=== PATIENT | male | born 1950 | race Caucasian/White ===

== ENCOUNTER 2018-02-23 12:05 | Inpatient (IN) | payer MEDICARE, OTHER ==
[~2018-02-23] VITALS: Ht 180.3 cm; Wt 94.5 kg
[2018-02-23 12:07] VITALS: BP 120/54; PULSE 90; RESP 20; TEMP 98.4; O2SAT 94
[2018-02-23] MEDS ORDERED: ASPI-516 CHEW (12:17)
[2018-02-23] MEDS ORDERED: FUROSEMIDE 20 MG/2 ML VIAL IV PUSH ONE (13:30)
--- NOTE | 2018-02-23 13:37 | PD ---
HPI Chief Complaint: Edema Time Seen by Provider: 13:18 Travel History International Travel<30 days: No Contact w/Intl Traveler<30days: No Traveled to known affect area: No History of Present Illness HPI This 68-year-old male is complaining of swelling in both of his legs. He has not seen a physician in about 20 years. He has no history of hypertension or diabetes. He does smoke cigarettes and believes he has emphysema. He says he has been short of breath at times. He does not take any medications. He does drink alcohol. He has had trouble breathing. He has pain in both of his feet. The pain is aggravated by trying to walk and he has not been able to walk recently. He has been using a scooter. He has been taking aspirin. He actually says that he takes 3 tablets of aspirin every 3-4 hours for circulation and because of pain in his right hip. He has not noted any blood in his stool. He does get a lot of bruising PFSH Past Medical History Diminished Hearing: No Tetanus Vaccination: Unknown Influenza Vaccination: No Social History Alcohol Use: Yes Tobacco Use: Yes Substance Use: No Allergies-Medications (Allergen,Severity, Reaction): Coded Allergies: No Known Allergies (Verified Allergy, Unknown, 02/23/18) Reported Meds & Prescriptions Reported Meds & Active Scripts Active Reported Aspirin 81 Mg Chew 81 Mg CHEW DAILY Review of Systems General / Constitutional: No: Fever, Chills Eyes: No: Diploplia, Blurred Vision HENT: No: Lightheadedness, Rhinitis Cardiovascular: Positive: Edema, No: Chest Pain or Discomfort Respiratory: Positive: Shortness of Breath Gastrointestinal: No: Nausea, Vomiting Genitourinary: No: Urgency, Frequency Musculoskeletal: Positive: Weakness, No: Myalgias Skin: No Rash, No Itching Psychiatric: No: Anxiety, Depression Endocrine: No: Cold Intolerance Hematologic/Lymphatic: Positive: Easy Bruising Physical Exam Narrative GENERAL: Well-developed male SKIN: Focused skin assessment warm/dry. There is purpura on both arms HEAD: Atraumatic. Normocephalic. EYES: Pupils equal and round. No scleral icterus. No injection or drainage. ENT: No nasal bleeding or discharge. Mucous membranes pink and moist. NECK: Trachea midline. No JVD. CARDIOVASCULAR: Regular rate and rhythm. No murmur appreciated. RESPIRATORY: No accessory muscle use. There are bilateral wheezes and rhonchi. breath sounds equal bilaterally. GASTROINTESTINAL: Abdomen soft, non-tender, nondistended. Hepatic and splenic margins not palpable. On rectal exam stool is brown and guaiac positive MUSCULOSKELETAL: No obvious deformities. No clubbing. No cyanosis. There is bilateral pedal edema up to the mid thigh bilaterally. There is some mild erythema of both feet. The posterior thigh is tender on the right NEUROLOGICAL: Awake and alert. No obvious cranial nerve deficits. Motor grossly within normal limits. Normal speech. PSYCHIATRIC: Appropriate mood and affect; insight and judgment normal. Data Data Last Documented VS Vital Signs Date Time Temp Pulse Resp B/P (MAP) Pulse Ox O2 Delivery O2 Flow Rate FiO2 02/23/18 12:17 97 Room Air 02/23/18 12:07 98.4 90 20 120/54 (76) Orders Orders Electrocardiogram (02/23/18 13:23) Complete Blood Count With Diff (02/23/18 13:23) Comprehensive Metabolic Panel (02/23/18 13:23) Troponin I (02/23/18 13:23) B-Type Natriuretic Peptide (02/23/18 13:23) Urinalysis - C+S If Indicated (02/23/18 13:23) Magnesium (Mg) (02/23/18 13:23) Chest, Single Ap (02/23/18 13:23) Us Leg Venous Doppler Bilat (02/23/18 13:23) Furosemide Inj (Lasix Inj) (02/23/18 13:30) Prothrombin Time / Inr (Pt) (02/23/18 13:39) Act Partial Throm Time (Ptt) (02/23/18 13:39) Type And Screen (02/23/18 14:34) Iron/Tibc Profile (02/23/18 14:35) Vitamin B12 (02/23/18 14:35) Folate, Serum (02/23/18 14:35) Salicylates (Aspirin) (02/23/18 14:53) Labs Laboratory Tests Test 02/23/18 13:50 White Blood Count 6.3 TH/MM3 Red Blood Count 3.06 MIL/MM3 Hemoglobin 7.4 GM/DL Hematocrit 24.7 % Mean Corpuscular Volume 80.6 FL Mean Corpuscular Hemoglobin 24.0 PG Mean Corpuscular Hemoglobin Concent 29.8 % Red Cell Distribution Width 20.2 % Platelet Count 341 TH/MM3 Mean Platelet Volume 7.4 FL Neutrophils (%) (Auto) 47.0 % Lymphocytes (%) (Auto) 26.9 % Monocytes (%) (Auto) 17.5 % Eosinophils (%) (Auto) 7.5 % Basophils (%) (Auto) 1.1 % Neutrophils # (Auto) 2.9 TH/MM3 Lymphocytes # (Auto) 1.7 TH/MM3 Monocytes # (Auto) 1.1 TH/MM3 Eosinophils # (Auto) 0.5 TH/MM3 Basophils # (Auto) 0.1 TH/MM3 CBC Comment AUTO DIFF Differential Comment AUTO DIFF CONFIRMED Prothrombin Time 12.7 SEC Prothromb Time International Ratio 1.3 RATIO Activated Partial Thromboplast Time 27.7 SEC Blood Urea Nitrogen 6 MG/DL Creatinine 0.56 MG/DL Random Glucose 84 MG/DL Total Protein 7.4 GM/DL Albumin 2.7 GM/DL Calcium Level 8.0 MG/DL Magnesium Level 2.2 MG/DL Alkaline Phosphatase 210 U/L Aspartate Amino Transf (AST/SGOT) 28 U/L Alanine Aminotransferase (ALT/SGPT) 12 U/L Total Bilirubin 0.2 MG/DL Sodium Level 137 MEQ/L Potassium Level 3.7 MEQ/L Chloride Level 105 MEQ/L Carbon Dioxide Level 28.2 MEQ/L Anion Gap 4 MEQ/L Estimat Glomerular Filtration Rate 146 ML/MIN Troponin I LESS THAN 0.02 NG/ML B-Type Natriuretic Peptide 178 PG/ML MDM Medical Decision Making Medical Screen Exam Complete: Yes Emergency Medical Condition: Yes Medical Record Reviewed: Yes Differential Diagnosis Differential diagnosis includes CHF, cirrhosis, edema, emphysema Narrative Course Hemoglobin is unexpectedly low at 7.4 with a white count of 6.3. Platelet count is 341,000. BNP is 178. Albumin is 2.7. Chest x-ray is read as negative. Ultrasound negative for DVT. Patient does have heme positive stool and this is most likely anemia secondary to blood loss. Certainly the large amount of aspirin he has been taking could be contributing. Diagnosis Primary Impression: Anemia Additional Impression: Edema Admitting Information Admitting Physician Requests: Admit Cristofer Gan MD Feb 23, 2018 13:37
[2018-02-23 13:54] LABS: AUTOMATED NEUTROPHIL # 2.9 TH/MM3 (1.8-7.7); BASOPHIL # 0.1 TH/MM3 (0-0.2); BASOPHIL % 1.1 % (0.0-2.0); EOSINOPHIL # 0.5 TH/MM3 (0-0.4); EOSINOPHIL % 7.5 % (0.0-4.0); HEMATOCRIT 24.7 % (39.0-51.0); HEMOGLOBIN 7.4 GM/DL (13.0-17.0); LYMPH % 26.9 % (9.0-44.0); LYMPHOCYTE # 1.7 TH/MM3 (1.0-4.8); MEAN CELL VOLUME 80.6 FL (80.0-100.0); MEAN PLATELET VOLUME 7.4 FL (7.0-11.0); MONO % 17.5 % (0.0-8.0); MONOCYTE # 1.1 TH/MM3 (0-0.9); PLATELET COUNT 341 TH/MM3 (150-450); RED BLOOD COUNT 3.06 MIL/MM3 (4.50-5.90); RED CELL DISTRIBUTION WIDTH 20.2 % (11.6-17.2); WHITE BLOOD COUNT 6.3 TH/MM3 (4.0-11.0)
[2018-02-23 14:07] LABS: CHLORIDE 105 MEQ/L (98-107); SODIUM (NA) 137 MEQ/L (136-145)
[2018-02-23 14:11] LABS: ALBUMIN 2.7 GM/DL (3.4-5.0); BICARBONATE 28.2 MEQ/L (21.0-32.0); BLOOD UREA NITROGEN 6 MG/DL (7-18); GLUCOSE,RANDOM 84 MG/DL (74-106); MAGNESIUM 2.2 MG/DL (1.5-2.5)
[2018-02-23 14:14] LABS: ALT (GPT) 12 U/L (12-78); AST (GOT) 28 U/L (15-37); CREATININE 0.56 MG/DL (0.60-1.30); GLOMERULAR FILTRATION RATE 146 ML/MIN (>89)
[2018-02-23 14:15] LABS: TOTAL BILIRUBIN ADULT 0.2 MG/DL (0.2-1.0)
[2018-02-23 14:16] LABS: MEAN CORPUSCULAR HGB CONC 29.8 % (32.0-36.0); TOTAL PROTEIN 7.4 GM/DL (6.4-8.2)
[2018-02-23 14:17] LABS: ALKALINE PHOSPHATASE 210 U/L (45-117)
[2018-02-23 14:19] LABS: TROPONIN I LESS THAN 0.02 NG/ML (0.02-0.05)
[2018-02-23 14:33] LABS: INTERNATIONAL NORMALIZED RATIO 1.3 RATIO; PROTHROMBIN TIME - PATIENT 12.7 SEC (9.8-11.6)
--- NOTE | 2018-02-23 14:40 | RADRPT ---
EXAM DATE/TIME: 02/23/2018 13:59 [facility] COMPARISON: No previous studies available for comparison. INDICATIONS : Lower extremity edema & shortness of breath. MEDICAL HISTORY : Emphysema. Smoker. SURGICAL HISTORY : None. ENCOUNTER: Initial ACUITY: 2 weeks PAIN SCORE: 8/10 LOCATION: Bilateral lower extremtities FINDINGS: A single view of the chest demonstrates the lungs to be symmetrically aerated without evidence of mas s, infiltrate or effusion. The cardiomediastinal contours are unremarkable. Osseous structures are intact. CONCLUSION: No acute disease. Mark Bowser MD on February 23, 2018 at 14:37 Board Certified Radiologist. This report was verified electronically.
--- NOTE | 2018-02-23 14:57 | RADRPT ---
EXAM DATE/TIME: 02/23/2018 14:33 [facility] COMPARISON: No previous studies available for comparison. INDICATIONS : Bilateral leg swelling. MEDICAL HISTORY : Hypertension. Diabetic. SURGICAL HISTORY : None. ENCOUNTER: Initial ACUITY: 2 weeks PAIN SCORE: 0/10 LOCATION: Bilateral leg. TECHNIQUE: Venous ultrasound of the left and right leg was performed from the inguinal ligament to the proximal calf. Real-time, color Doppler and spectral tracing, compression and augmentation techniques were us ed. FINDINGS: RIGHT LEG: There is normal compressibility of the deep venous system from the inguinal region to the proximal ca lf. No echogenic clot is seen in the lumen of the common femoral, femoral, popliteal, and posterior tibial veins. There is a normal response of the venous system to proximal and distal augmentation an d respiration. LEFT LEG: There is normal compressibility of the deep venous system from the inguinal region to the proximal ca lf. No echogenic clot is seen in the lumen of the common femoral, femoral, popliteal, and posterior tibial veins. There is a normal response of the venous system to proximal and distal augmentation an d respiration. CONCLUSION: 1. No sonographic evidence for lower extremity DVT. Jean Pelletier MD on February 23, 2018 at 14:55 Board Certified Radiologist. This report was verified electronically.
[2018-02-23] MEDS ORDERED: SODIUM CHLORIDE 0.9% FLUSH 10 ML FLUSH IV FLUSH PRN (15:45)
[2018-02-23] MEDS ORDERED: NALOXONE HCL 0.4 MG/ML AMP IV PUSH PRN (15:45)
[2018-02-23] MEDS ORDERED: MAGNESIUM HYDROXIDE SUSP 30 ML CUP PO PRN (15:45)
[2018-02-23] MEDS ORDERED: ONDANSETRON HCL 4 MG/2 ML VIAL IVP PRN (15:45)
[2018-02-23] MEDS ORDERED: BISACODYL 10 MG SUPP RECTAL PRN (15:45)
[2018-02-23] MEDS ORDERED: ACETAMINOPHEN 325 MG TAB PO PRN (15:45)
[2018-02-23] MEDS ORDERED: SENNOSIDES 8.6 MG TAB PO PRN (15:45)
[2018-02-23 16:43] LABS: BILIRUBIN, URINE NEG (NEG); BLOOD, URINE NEG (NEG); GLUCOSE,URINE NEG (NEG); KETONE, URINE NEG (NEG); NITRITE,URINE NEG (NEG); PH, URINE 5.5 (5.0-8.5); URINE COLOR YELLOW (YELLW/STRAW); URINE LEUKOCYTE ESTERASE NEG (NEG)
[2018-02-23 16:50] VITALS: PULSE 88
[2018-02-23 16:53] LABS: RBC, URINE 0-3 /hpf (0-3); SQUAMOUS EPITHELIAL CELL URINE 0-5 /hpf (0-5)
[2018-02-23 16:55] VITALS: O2SAT 93
--- NOTE | 2018-02-23 16:59 | HHI.HP ---
HPI Service [facility] Primary Care Physician No Primary Care Physician Admission Diagnosis GI bleed Diagnoses: Chief Complaint: Bilateral leg swelling Travel History International Travel<30 Days: No Contact w/Intl Traveler <30 Da: No Traveled to Known Affected Are: No History of Present Illness This is a 68-year-old male patient with a known medical history of tobacco abuse and alcohol abuse who has not seen a doctor for over 20 years presented to the ED with complaints of bilateral lower extremity swelling and left knee pain. Patient states roughly 4 months ago he noticed his right lower extremity swell with associated erythema and then just last week he bumped his left knee and his left lower extremity started to swell as well. Patient does admit to some intermittent shortness of breath but relates this to his chronic tobacco abuse. Patient also states that after bumping his left knee he has been unable to walk well and just invested in a scooter. Does admit to prior falls at home. Presents with multiple abrasions on upper extremities. Denies any recent illness including fever, chills, cough, abdominal pain, nausea, vomiting, diarrhea, dysuria or hematozemia. Last colonoscopy was when he was 52 years old and reportedly negative. Review of Systems Constitutional: DENIES: Fever, Chills Eyes: DENIES: Blurred vision, Diplopia Respiratory: COMPLAINS OF: Shortness of breath, DENIES: Cough Cardiovascular: COMPLAINS OF: Lower Extremity Edema, DENIES: Chest pain, Palpitations Gastrointestinal: DENIES: Abdominal pain, Black stools, Bloody stools, Constipation, Diarrhea, Nausea, Vomiting Musculoskeletal: DENIES: Joint pain Psychiatric: DENIES: Anxiety Except as stated in HPI: all other systems reviewed are Neg Past Family Social History Past Medical History Tobacco abuse Alcohol abuse Past Surgical History C3-C4 fusion Left femur repair Left wrist repair Right ankle repair Reported Medications Active Reported Aspirin 81 Mg Chew 81 Mg CHEW DAILY Allergies: Coded Allergies: No Known Allergies (Verified Allergy, Unknown, 02/23/18) Active Ordered Medications Current Medications Medications (Trade) Dose Ordered Sig/Jose Juan Route Start Time Stop Time Status Last Admin (NS Flush) 2 ml UNSCH PRN IV FLUSH 02/23/18 15:45 (NS Flush) 2 ml BID IV FLUSH 02/23/18 21:00 (Tylenol) 650 mg Q4H PRN PO 02/23/18 15:45 (Zofran Inj) 4 mg Q6H PRN IVP 02/23/18 15:45 (Narcan Inj) 0.4 mg UNSCH PRN IV PUSH 02/23/18 15:45 (Maryellen-Colace) 1 tab BID PO 02/23/18 21:00 (Milk Of Magnesia Liq) 30 ml Q12H PRN PO 02/23/18 15:45 (Senokot) 17.2 mg Q12H PRN PO 02/23/18 15:45 (Dulcolax Supp) 10 mg DAILY PRN RECTAL 02/23/18 15:45 Family History Maternal medical history significant for breast CA. Father at the age of 87 due to a stroke. Social History Smokes half pack per day for 51 years. Admits to drinking 12 beers per day for 20 years. Does admit to occasional marijuana use. Physical Exam Vital Signs Vital Signs Date Time Temp Pulse Resp B/P (MAP) Pulse Ox O2 Delivery O2 Flow Rate FiO2 02/23/18 12:17 97 Room Air 02/23/18 12:07 98.4 90 20 120/54 (76) 94 Physical Exam GENERAL: Well-developed, well-nourished patient in NAD. SKIN: Warm and dry. No rash. HEAD: Normocephalic. Atraumatic. EYES: Pupils equal and round. No scleral icterus. No injection or drainage. ENT: No nasal bleeding or discharge. Mucous membranes pink and moist. NECK: Supple. Trachea midline. CARDIOVASCULAR: Regular rate and rhythm. S1, S2 noted. No murmur appreciated. RESPIRATORY: No accessory muscle use. Clear to auscultation. Breath sounds equal bilaterally. GASTROINTESTINAL: Abdomen soft, non-tender, nondistended. Normoactive bowel sounds x4. MUSCULOSKELETAL: Bilateral lower extremities with 3+ pitting edema with erythema extending to the calf bilaterally. Pain to palpation to left knee joint and with passive/active range of motion. NEUROLOGICAL: Awake and alert. No obvious cranial nerve deficits. Motor grossly within normal limits. 5/5 muscle strength in bilateral upper and lower extremities. Normal speech. PSYCHIATRIC: Appropriate mood and affect; insight and judgment normal. Laboratory Laboratory Tests Test 02/23/18 13:50 02/23/18 16:32 White Blood Count 6.3 Red Blood Count 3.06 Hemoglobin 7.4 Hematocrit 24.7 Mean Corpuscular Volume 80.6 Mean Corpuscular Hemoglobin 24.0 Mean Corpuscular Hemoglobin Concent 29.8 Red Cell Distribution Width 20.2 Platelet Count 341 Mean Platelet Volume 7.4 Neutrophils (%) (Auto) 47.0 Lymphocytes (%) (Auto) 26.9 Monocytes (%) (Auto) 17.5 Eosinophils (%) (Auto) 7.5 Basophils (%) (Auto) 1.1 Neutrophils # (Auto) 2.9 Lymphocytes # (Auto) 1.7 Monocytes # (Auto) 1.1 Eosinophils # (Auto) 0.5 Basophils # (Auto) 0.1 CBC Comment AUTO DIFF Differential Comment AUTO DIFF CONFIRMED Prothrombin Time 12.7 Prothromb Time International Ratio 1.3 Activated Partial Thromboplast Time 27.7 Blood Urea Nitrogen 6 Creatinine 0.56 Random Glucose 84 Total Protein 7.4 Albumin 2.7 Calcium Level 8.0 Magnesium Level 2.2 Alkaline Phosphatase 210 Aspartate Amino Transf (AST/SGOT) 28 Alanine Aminotransferase (ALT/SGPT) 12 Total Bilirubin 0.2 Sodium Level 137 Potassium Level 3.7 Chloride Level 105 Carbon Dioxide Level 28.2 Anion Gap 4 Estimat Glomerular Filtration Rate 146 Troponin I LESS THAN 0.02 B-Type Natriuretic Peptide 178 Result Diagram: 02/23/18 1350 02/23/18 1350 Imaging Last Impressions Lower Extremity Ultrasound 02/23/18 1323 Signed Impressions: Service Date/Time: February 14:33 - CONCLUSION: 1. No sonographic evidence for lower extremity DVT. Jean Pelletier MD Chest X-Ray 02/23/18 1323 Signed Impressions: Service Date/Time: February 13:59 - CONCLUSION: No acute disease. Mark Bowser MD Septic Shock Reassessment Septic shock perfusion: reassessment completed Caprini VTE Risk Assessment Caprini VTE Risk Assessment: Mod/High Risk (score >= 2) Caprini Risk Assessment Model Point Value = 1 Point Value = 2 Point Value = 3 Point Value = 5 Age 41-60 Minor surgery BMI > 25 kg/m2 Swollen legs Varicose veins or History of unexplained or recurrent spontaneous Oral contraceptives or hormone replacement Sepsis (< 1 month) Serious lung disease, including pneumonia (< 1 month) Abnormal pulmonary function Acute myocardial infarction Congestive heart failure (< 1 month) History of inflammatory bowel disease Medical patient at bed rest Age 61-74 Arthroscopic surgery Major open surgery (> 45 min) Laparoscopic surgery (> 45 min) Malignancy Confined to bed (> 72 hours) Immobilizing plaster cast Central venous access Age >= 75 History of VTE Family history of VTE Factor V Leiden Prothrombin [id number] Lupus anticoagulant Anticardiolipin antibodies Elevated serum homocysteine Heparin-induced thrombocytopenia Other congenital or acquired thrombophilia Stroke (< 1 month) Elective arthroplasty Hip, pelvis, or leg fracture Acute spinal cord injury (< 1 month) Prophylaxis Regimen Total Risk Factor Score Risk Level Prophylaxis Regimen 0-1 Low Early ambulation 2 Moderate Order ONE of the following: *Sequential Compression Device (SCD) *Heparin 5000 units SQ BID 3-4 Higher Order ONE of the following medications: *Heparin 5000 units SQ TID *Enoxaparin/Lovenox 40 mg SQ daily (WT < 150 kg, CrCl > 30 mL/min) *Enoxaparin/Lovenox 30 mg SQ daily (WT < 150 kg, CrCl > 10-29 mL/min) *Enoxaparin/Lovenox 30 mg SQ BID (WT < 150 kg, CrCl > 30 mL/min) AND/OR *Sequential Compression Device (SCD) 5 or more Highest Order ONE of the following medications: *Heparin 5000 units SQ TID (Preferred with Epidurals) *Enoxaparin/Lovenox 40 mg SQ daily (WT < 150 kg, CrCl > 30 mL/min) *Enoxaparin/Lovenox 30 mg SQ daily (WT < 150 kg, CrCl > 10-29 mL/min) *Enoxaparin/Lovenox 30 mg SQ BID (WT < 150 kg, CrCl > 30 mL/min) AND *Sequential Compression Device (SCD) Assessment and Plan Assessment and Plan This is a 68-year-old male patient with a known medical history of tobacco abuse and alcohol abuse who has not seen a doctor for over 20 years presented to the ED with complaints of bilateral lower extremity swelling and left knee pain. Bilateral lower extremity edema - Patient denies any known history of CHF. BNP 178. Chest x-ray reviewed showing no significant acute cardiopulmonary disease. - Was given Lasix 20 mg IV in ED. Will place on daily Lasix. Place on potassium supplementation. Monitor intake and output closely. - Check ECHO, follow. - Lower extremity US negative for DVT. - No signs of infection. Skin dry and intact, no open areas or weeping. Encourage lower extremity elevation. Keep skin clean and dry. - Continue to monitor for any infection, patient is afebrile, with no leukocytosis. Left knee pain, recent trauma to area Lower extremity weakness History of fall at home - Patient states he hurt his knee a couple weeks ago and since then has had increase in swelling and pain. - Left knee x-ray ordered and pending. Follow. - PT eval ordered, appreciate input and recommendations. Normocytic hypochromic anemia rule out GI bleed - Hematocrit 24.7/Hemoglobin 7.4. No recent signs of bleeding. Asymptomatic. - Does admit to chronic aspirin use, takes aspirin up to 4 times per day for many years for joint pain and "circulation" - Hemoccult ordered and pending. Follow. - Will check anemia studies. Follow. - Monitor for any bleeding. - Consult placed to GI, appreciate input and recommendations. Last colonoscopy 15 years ago. - Placed on Protonix. Chronic alcohol abuse: Patient does admit to drinking 12 beers daily for the past [address] on CIWA protocol. Monitor for withdrawals. Monitor for any seizures. Placed on multivitamin, folic acid and thiamine. Encourage cessation. Tobacco abuse: Encouraged cessation. Nicotine patch offered. DVT prophylaxis: Patient lower extremities swollen and and pain, will avoid SCDs. Patient with active bleeding, avoid chemical prophylaxis at this time. Marisol Contreras Feb 23, 2018 16:59
[2018-02-23] MEDS ORDERED: FLUMAZENIL 0.5 MG/5 ML VIAL IV PUSH PRN (17:15)
[2018-02-23] MEDS ORDERED: HALOPERIDOL LACTATE 5 MG/ML AMP IM PRN (17:15)
[2018-02-23] MEDS ORDERED: LORazepam 2 MG/ML VIAL IV PUSH PRN ×4 (17:15)
[2018-02-23] MEDS ORDERED: LORazepam 1 MG TAB PO PRN (17:15)
[2018-02-23] MEDS ORDERED: LORazepam 2 MG TAB PO PRN (17:15)
[2018-02-23] MEDS ORDERED: PANTOPRAZOLE SODIUM 40 MG VIAL IV PUSH SCH (18:00)
[2018-02-23 18:31] LABS: IRON (FE) 18 MCG/DL (65-175); TOTAL IRON BINDING CAPACITY 594 MCG/DL (250-450)
[2018-02-23 18:33] LABS: CHOLESTEROL 54 MG/DL (120-200); TRIGLYCERIDES 70 MG/DL (42-150)
[2018-02-23 18:35] LABS: CHOLESTEROL/ HDL RATIO 2.62 RATIO; HDL CHOLESTEROL 20.6 MG/DL (40.0-60.0); LDL CHOLESTEROL 19 MG/DL (0-99)
[2018-02-23] MEDS: SODIUM CHLORIDE 0.9% FLUSH 10 ML FLUSH IV FLUSH SCH (19:54)
[2018-02-23] MEDS: DOCUSATE SODIUM 50 MG/SENNA 8.6 MG TAB PO SCH (19:54)
[2018-02-23 20:00] VITALS: BP 100/55; PULSE 86; PULSE 87; RESP 20; TEMP 98.1; O2SAT 92; O2SAT 93
--- NOTE | 2018-02-23 21:24 | RADRPT ---
EXAM DATE/TIME: 02/23/2018 20:46 [facility] COMPARISON: No previous studies available for comparison. INDICATIONS : Pain in left knee. No known injury. MEDICAL HISTORY : Hypertension. Diabetic. SURGICAL HISTORY : ORIF Left femur. ENCOUNTER: Initial ACUITY: 1 day PAIN SCORE: 2/10 LOCATION: Left Knee FINDINGS: There is an old healed fracture of the visualized distal left femur. At the knee, mild arthritic patel ges present. There is a small suprapatellar effusion. No definite acute bony findings. CONCLUSION: Mild arthritic change and small joint effusion. No acute bony findings Reji Friend MD on February 23, 2018 at 21:19 Board Certified Radiologist. This report was verified electronically.
[2018-02-23] MEDS ORDERED: POTASSIUM CHLORIDE 25 MEQ EFFERVESCENT TAB PO ONE (23:00)
[2018-02-23] MEDS ORDERED: SODIUM BICARBONATE 8.4% INJ 150 MEQ in DEXTROSE 5% IN WATE 1000ML INJ 1,000 ML IV SCH ×2 (23:15)
[2018-02-24] VITALS (9 sets, daily range): BP systolic 116–129; BP diastolic 56–75; PULSE 82–90; RESP 15–20; TEMP 96–99; O2SAT 92–95
[2018-02-24] MEDS ORDERED: SODIUM CHLOR 0.9% 250 ML INJ 250 ML IV ONE (01:15)
[2018-02-24 01:32] LABS: HEMATOCRIT 22.1 % (39.0-51.0)
[2018-02-24 01:34] LABS: HEMOGLOBIN 6.8 GM/DL (13.0-17.0)
[2018-02-24 08:16] LABS: AUTOMATED NEUTROPHIL # 4.6 TH/MM3 (1.8-7.7); BASOPHIL # 0.1 TH/MM3 (0-0.2); BASOPHIL % 0.9 % (0.0-2.0); EOSINOPHIL # 0.3 TH/MM3 (0-0.4); EOSINOPHIL % 4.4 % (0.0-4.0); HEMATOCRIT 27.1 % (39.0-51.0); HEMOGLOBIN 8.2 GM/DL (13.0-17.0); LYMPH % 17.3 % (9.0-44.0); LYMPHOCYTE # 1.3 TH/MM3 (1.0-4.8); MEAN CELL VOLUME 80.7 FL (80.0-100.0); MEAN CORPUSCULAR HEMOGLOBIN 24.4 PG (27.0-34.0); MEAN CORPUSCULAR HGB CONC 30.2 % (32.0-36.0); MEAN PLATELET VOLUME 7.4 FL (7.0-11.0); MONO % 14.3 % (0.0-8.0); MONOCYTE # 1.1 TH/MM3 (0-0.9); NEUT % 63.1 % (16.0-70.0); PLATELET COUNT 353 TH/MM3 (150-450); RED BLOOD COUNT 3.35 MIL/MM3 (4.50-5.90); RED CELL DISTRIBUTION WIDTH 19.7 % (11.6-17.2); WHITE BLOOD COUNT 7.4 TH/MM3 (4.0-11.0)
[2018-02-24 08:21] LABS: CALCIUM 8.1 MG/DL (8.5-10.1)
[2018-02-24 08:22] LABS: BICARBONATE 29.4 MEQ/L (21.0-32.0)
[2018-02-24 08:25] LABS: CREATININE 0.6 MG/DL (0.60-1.30)
[2018-02-24] MEDS ORDERED: THIAMINE HCL 100 MG TAB PO SCH (09:00)
[2018-02-24] MEDS ORDERED: POTASSIUM CHLORIDE 10 MEQ CONTROLLED RELEASE TAB PO SCH (09:00)
[2018-02-24] MEDS ORDERED: MULTIVITAMINS/MINERALS THERAPEUTIC TAB PO SCH (09:00)
[2018-02-24] MEDS ORDERED: FOLIC ACID 1 MG TAB PO SCH (09:00)
[2018-02-24] MEDS ORDERED: FUROSEMIDE 40 MG/4 ML VIAL IV PUSH SCH (09:00)
[2018-02-24] MEDS: DOCUSATE SODIUM 50 MG/SENNA 8.6 MG TAB PO SCH (09:00)
[2018-02-24] MEDS: SODIUM CHLORIDE 0.9% FLUSH 10 ML FLUSH IV FLUSH SCH (10:47)
--- NOTE | 2018-02-24 11:24 | HHI.PR ---
Subjective Remarks Follow-up GI bleed and lower extremity swelling. Patient seen and examined sitting up in chair comfortably no apparent distress. Patient states he wants to leave, is honest and wants to go drink alcohol. Patient spoken to at length regarding risk of leaving and possible due to active bleeding. Patient did receive 1 unit of packed red blood cells overnight, hemoglobin dropped to 6.8 and improved to 8.2. Patient does not display any acute signs of bleeding at this time. Does have continued bilateral lower extremity swelling. Awaiting gastroenterology input today. Left knee pain, small left knee effusion seen. Objective Vitals Vital Signs Date Time Temp Pulse Resp B/P (MAP) Pulse Ox O2 Delivery O2 Flow Rate FiO2 02/24/18 08:02 94 21 02/24/18 08:00 96.0 87 15 129/75 (93) 95 02/24/18 07:30 97.8 90 18 129/75 (93) 94 02/24/18 04:15 97.9 84 20 119/57 (77) 93 02/24/18 04:06 97.9 84 20 119/58 94 02/24/18 04:00 97.8 84 20 120/58 (78) 95 02/24/18 03:51 97.8 84 20 120/58 95 02/24/18 00:30 Nasal Cannula 2.00 02/24/18 00:00 98.1 82 20 116/56 (76) 93 02/23/18 20:00 87 02/23/18 20:00 98.1 86 20 100/55 (70) 92 02/23/18 20:00 93 21 02/23/18 16:55 93 21 02/23/18 16:50 88 02/23/18 12:17 97 Room Air 02/23/18 12:07 98.4 90 20 120/54 (76) 94 I/O 02/23/18 02/23/18 02/23/18 02/24/18 02/24/18 02/24/18 07:00 15:00 23:00 07:00 15:00 23:00 Intake Total 480 ml Balance 480 ml Intake Oral 60 ml Packed Cells 400 ml Blood Product IV Normal Saline Flush 20 ml # Voids 2 # Bowel Movements 0 Result Diagram: 02/24/18 0750 02/24/18 0750 Imaging Last Impressions Lower Extremity Ultrasound 02/23/18 1323 Signed Impressions: Service Date/Time: February 14:33 - CONCLUSION: 1. No sonographic evidence for lower extremity DVT. Jean Pelletier MD Chest X-Ray 02/23/18 1323 Signed Impressions: Service Date/Time: February 13:59 - CONCLUSION: No acute disease. Mark Bowser MD Knee X-Ray 02/23/18 0000 Signed Impressions: Service Date/Time: , February 23, 2018 20:46 - CONCLUSION: Mild arthritic change and small joint effusion. No acute bony findings Reji Friend MD Objective Remarks GENERAL: Well-developed, well-nourished patient in NAD. SKIN: Warm and dry. No rash. HEAD: Normocephalic. Atraumatic. EYES: Pupils equal and round. No scleral icterus. No injection or drainage. ENT: No nasal bleeding or discharge. Mucous membranes pink and moist. NECK: Supple. Trachea midline. CARDIOVASCULAR: Regular rate and rhythm. S1, S2 noted. No murmur appreciated. RESPIRATORY: No accessory muscle use. Clear to auscultation. Breath sounds equal bilaterally. GASTROINTESTINAL: Abdomen soft, non-tender, nondistended. Normoactive bowel sounds x4. MUSCULOSKELETAL: Bilateral lower extremities with 3+ pitting edema with erythema extending to the calf bilaterally. Pain to palpation to left knee joint and with passive/active range of motion. NEUROLOGICAL: Awake and alert. No obvious cranial nerve deficits. Motor grossly within normal limits. 5/5 muscle strength in bilateral upper and lower extremities. Normal speech. PSYCHIATRIC: Appropriate mood and affect; insight and judgment normal. A/P Assessment and Plan This is a 68-year-old male patient with a known medical history of tobacco abuse and alcohol abuse who has not seen a doctor for over 20 years presented to the ED with complaints of bilateral lower extremity swelling and left knee pain. Bilateral lower extremity edema - Patient denies any known history of CHF. BNP 178. Chest x-ray reviewed showing no significant acute cardiopulmonary disease. - Was given Lasix 20 mg IV in ED. Will place on daily Lasix. Place on potassium supplementation. Monitor intake and output closely. - Check ECHO, pending. - Lower extremity US negative for DVT. - No signs of infection. Skin dry and intact, no open areas or weeping. Encourage lower extremity elevation. Keep skin clean and dry. - Continue to monitor for any infection, patient is afebrile, with no leukocytosis. Left knee pain, recent trauma to area Lower extremity weakness History of fall at home - Patient states he hurt his knee a couple weeks ago and since then has had increase in swelling and pain. - Left knee x-ray ordered showing small effusion. Lower extremity ultrasound negative for DVT. - PT eval ordered, appreciate input and recommendations. Normocytic hypochromic anemia rule out GI bleed Salicylic toxicity Iron deficiency anemia - Hematocrit 24.7/Hemoglobin 7.4. Dropped to 6.8. No recent signs of bleeding. Asymptomatic. - Received 1 unit PRBC, H&H improved to 8.2. - Does admit to chronic aspirin use, takes aspirin up to 4 times per day for many years for joint pain and "circulation". - Hemoccult pending. Follow. - Iron 18, TIBC 594. Will order IV replacement. - Monitor for any bleeding. - Consult placed to GI, appreciate input and recommendations. Last colonoscopy 15 years ago. - Placed on Protonix. Continue. - Salicylic toxicity, level 39. Now down to 28.7. Bicarb drip stopped. Continue to monitor. Chronic alcohol abuse: Patient does admit to drinking 12 beers daily for the past [address] on CIWA protocol. Monitor for withdrawals. Monitor for any seizures. Placed on multivitamin, folic acid and thiamine. Encourage cessation. Tobacco abuse: Encouraged cessation. Nicotine patch offered. DVT prophylaxis: Patient lower extremities swollen and and pain, will avoid SCDs. Patient with active bleeding, avoid chemical prophylaxis at this time. Marisol Contreras Feb 24, 2018 11:24
[2018-02-24] MEDS ORDERED: IRON SUCROSE INJ 100 MG in SODIUM CHLORIDE 0.9% INJ 100 ML IV SCH (14:00)
[2018-02-24 14:38] LABS: HEMOGLOBIN A1C 5.9 % (4.3-6.0)
--- NOTE | 2018-02-24 18:27 | ECHRPT ---
Indication: HEART FAILURE CONCLUSIONS Slightly dilated left ventricle. Wall thickness is normal. No atrial level shunt is demonstrated by color flow Doppler interrogation. The aortic root and proximal ascending aorta are not well visualized. Mild mitral annular calcification. No mitral valve regurgitation. The pulmonary valve is not well visualized. BP: 119 / 57 HR: 84 Rhythm: Sinus MEASUREMENTS (Male / Female) Normal Values Technical Quality:Technically difficult study 2D ECHO LV Diastolic Diameter PLAX 5.9 cm 4.2 - 5.9 / 3.9 - 5.3 cm LV Systolic Diameter PLAX 4.2 cm IVS Diastolic Thickness 0.9 cm 0.6 - 1.0 / 0.6 - 0.9 cm LVPW Diastolic Thickness 0.9 cm 0.6 - 1.0 / 0.6 - 0.9 cm LV Relative Wall Thickness 0.3 RV Internal Dim ED PLAX 3.5 cm LVOT Diameter 2.3 cm Aortic Root Diameter 3.8 cm LA Systolic Diameter LX 3.8 cm 3.0 - 4.0 / 2.7 - 3.8 cm M-MODE AV Cusp Separation MM 2.0 cm DOPPLER AV Peak Velocity 135.0 cm/s AV Peak Gradient 7.3 mmHg AV Mean Gradient 4.0 mmHg AV Velocity Time Integral 23.7 cm LVOT Peak Velocity 81.2 cm/s LVOT Peak Gradient 2.6 mmHg LVOT Velocity Time Integral 13.3 cm AV Area Cont Eq vti 2.3 cm AV Area Cont Eq pk 2.5 cm Mitral E Point Velocity 104.0 cm/s Mitral A Point Velocity 72.1 cm/s Mitral E to A Ratio 1.4 LV E' Lateral Velocity 16.4 cm/s Mitral E to LV E' Lateral Ratio 6.3 LV E' Septal Velocity 14.9 cm/s Mitral E to LV E' Septal Ratio 7.0 PV Peak Velocity 54.9 cm/s PV Peak Gradient 1.2 mmHg FINDINGS LEFT VENTRICLE Slightly dilated left ventricle. Wall thickness is normal. The left ventricular systolic function is normal with an estimated ejection fraction in the range of 60-65%. RIGHT VENTRICLE Normal right ventricular size and systolic function. LEFT ATRIUM The left atrial size is normal. RIGHT ATRIUM The right atrial size is normal. ATRIAL SEPTUM No atrial level shunt is demonstrated by color flow Doppler interrogation. AORTA The aortic root and proximal ascending aorta are not well visualized. MITRAL VALVE Mild mitral annular calcification. No mitral valve regurgitation. AORTIC VALVE Trileaflet aortic valve. No aortic valve stenosis or regurgitation. TRICUSPID VALVE Structurally normal tricuspid valve. No tricuspid valve stenosis or regurgitation. PULMONARY VALVE The pulmonary valve is not well visualized. VESSELS The inferior vena cava is normal in size. PERICARDIUM No pericardial effusion. Leobardo Noe MD (Electronically Signed) Final Date:24 February 2018 18:25
--- NOTE | 2018-02-25 09:22 | EKG ---
Date Performed: 02/23/2018 Time Performed: 13:48:59 PTAGE: 68 years EKG: Sinus rhythm NORMAL ECG NO PREVIOUS TRACING DOCTOR: Boogie Perez Interpretating Date/Time 02/25/2018 09:16:38
== END 2018-02-24 13:25 | disposition left against medical advice (07) | DRG 812 ==
LOC: PHED 12:05 → EDBD 12:05 → PHEDA 15:39 → PH3B 16:34 → OBSVTOIN 02-24 12:59
PROVIDERS: ADMIT Hospitalist; ATTEND Hospitalist
PROC: 30233N1 Transfusion of Nonautologous Red Blood Cells into Peripheral Vein, Percutaneous Approach (ICD-10-PCS; principal; 2018-02-24)
DX: D50.9 Iron deficiency anemia, unspecified (principal); F10.10 Alcohol abuse, uncomplicated; M25.562 Pain in left knee; R60.0 Localized edema; R53.1 Weakness; W19.XXXA Unspecified fall, initial encounter; M25.462 Effusion, left knee; T39.091A Poisoning by salicylates, accidental (unintentional), initial encounter; F12.90 Cannabis use, unspecified, uncomplicated; Z72.0 Tobacco use; Y92.009 Unspecified place in unspecified non-institutional (private) residence as the place of occurrence of the external cause; Z79.82 Long term (current) use of aspirin
CPT/HCPCS: 36430; 36600; 71045; 73564; 80048; 80053; 80061; 80307; 81001; 81003; 82272; 82607; 82746; 82805; 83036; 83540; 83550; 83735; 83880; 84132; 84133; 84484; 85014; 85018; 85025; 85610; 85730; 86850; 86900; 86901; 86920; 93005; 93306; 93970; 96374; C9113; G0378; G8987-GP; G8988-GP; J1940; J7050; J7070; P9016